=== PATIENT | male | born 1975 | race Caucasian/White ===

== ENCOUNTER 2021-04-01 18:39 | Inpatient (IN) | payer MEDICARE, OTHER ==
[~2021-04-01] VITALS: Ht 170.2 cm; Wt 133.8 kg
--- NOTE | 2021-04-01 18:50 | NUR ---
Abdominal pain with shortness since this morning. Patient a/ox4, c/o shortness of breath, on 2lpm via with spo2 of 83%. Increased O2 to 5LPM VIA NC, spo2 increased to 94%. Dr. Benedict at bedside for eval. Patient denies abdominal pain now. Placed on the retail sales associate.
[2021-04-01] MEDS ORDERED: NITROGLYCERIN 0.4 MG/TAB BOTTLE SL ONE (19:00)
--- NOTE | 2021-04-01 19:00 | NUR ---
IV LINE ESTABLISHED, BLOOD DRAWN AND SENT TO LAB.
[2021-04-01] MEDS ORDERED: NITROGLYCERIN 0.4 MG/TAB BOTTLE ONE (19:07)
--- NOTE | 2021-04-01 19:11 | NUR ---
international trade teacher at bedside for xray.
[2021-04-01] MEDS ORDERED: FUROSEMIDE 40 MG/4 ML VIAL IV ONE (19:30)
[2021-04-01 19:35] LABS: BASOPHILS % (AUTO) 0.6 % (0.0-2.0); EOSINOPHILS % (AUTO) 1.9 % (0.0-6.0); HEMATOCRIT 45 % (39-51); HEMOGLOBIN 14.7 g/dL (13.5-17.5); LYMPHOCYTES # (AUTO) 1.3 K/uL (0.8-4.8); LYMPHOCYTES % (AUTO) 18.3 % (20.0-44.0); MEAN CORPUSCULAR HGB CONC 32 g/dl (31.0-36.0); MEAN CORPUSCULAR VOLUME 91 fL (80-96); MONOCYTES # (AUTO) 0.8 K/uL (0.1-1.30); MONOCYTES % (AUTO) 10.8 % (2.0-12.0); NEUTROPHILS # (AUTO) 4.9 K/uL (1.8-8.9); NEUTROPHILS % (AUTO) 68.4 % (43.0-81.0); PLATELET COUNT (AUTO) 167 K/uL (150-450); RED BLOOD CELL COUNT(AUTO) 4.96 MIL/uL (4.5-6.0); WHITE BLOOD COUNT (AUTO) 7.2 K/uL (4.3-11.0)
[2021-04-01 19:43] LABS: CALCIUM, SERUM 8.3 mg/dL (8.5-10.1); CARBON DIOXIDE 37 mmol/L (21-32); CHLORIDE 103 mmol/L (98-107); CREATININE 0.8 mg/dL (0.6-1.3); GLUCOSE 94 mg/dL (74-106); POTASSIUM 4.3 mmol/L (3.5-5.1); SODIUM SERUM 142 mmol/L (136-145); UREA NITROGEN, BLOOD 11 mg/dL (7-18)
--- NOTE | 2021-04-01 19:50 | NUR ---
nilsa fu collected and sent to the lab.
--- NOTE | 2021-04-01 20:29 | NUR ---
CALLED NURSING SUP FOR BED
--- NOTE | 2021-04-01 20:34 | NUR ---
AT BEDSIDE FOR RE-EVALUATION.
[2021-04-01] MEDS ORDERED: LIDOCAINE 2% JEL UROJET 10 ML MM ONE (20:35)
--- NOTE | 2021-04-01 20:52 | NUR ---
TELE 946-4
--- NOTE | 2021-04-01 21:21 | NUR ---
REPORT GIVEN TO RADHA PALM FOR CASSIA.
--- NOTE | 2021-04-01 21:30 | NUR ---
RN ADMITTING NOTE PATIENT TRANSFERRED FROM ED TO MS/TELE UNIT [facility]IA [facility]. PATIENT IS AMBULATORY WITH ASSISTANCE. MONDRAGON CATHETER IN PLACE FR 14, DRAINING CLEAR YELLOW URINE VIA GRAVITY. PATIENT HAS A L HAND 18 G PATENT AND INTACT. PATIENT IS ABLE TO MAKE NEEDS KNOWN, A/O X 4. PATIENT IS NOTICEABLY SOB WHILE AT REST, AND WORSENS UPON EXERTION. CRACKLES HEARD UPON AUSCULTATION ON BILATERAL LUNG LOBES, PATIENT IS CURRENTLY ON 6 L OF OXYGEN SUPPLEMENTATION VIA NASAL CANULA, SATURATING AT 94%. TELE MONITOR READS ST 112 BPM. PATIENT'S BLE HAS ERYTHEMA AND EDEMA +3. SKIN ISSUES DOCUMENTED. ORIENTED PATIENT TO UNIT, PRIMARY NURSE, MELANIE. SAFETY MEASURES IN PLACE: BED IN LOCKED AND LOWEST POSITION, CALL LIGHT WITHIN REACH, SIDE RAILS UP. WILL MONITOR PATIENT CLOSELY. Addendum: 04/02/21 at 0707 by BRE PAINTER RN MONDRAGON BAG HAD 800 OUTPUT ALREADY
--- NOTE | 2021-04-01 21:32 | NUR ---
patient taken up to assigned room via ACLS protocols for christine.
[2021-04-01] MEDS ORDERED: ALBUTEROL FS 2.5 MG/0.5 ML VIAL.NEB NEB PRN (22:30)
[2021-04-01] MEDS ORDERED: NITROGLYCERIN 0.4 MG/TAB BOTTLE SL PRN (22:30)
[2021-04-01] MEDS ORDERED: IPRATROPIUM BROMIDE 14 GM INHALER (or 12.9 GM) IH PRN (22:30)
[2021-04-02] VITALS: BP 152/81
--- NOTE | 2021-04-02 02:50 | NUR ---
RN NOTE PATIENT SEEN BY CHETAN CRUZ WITH VERBAL ORDER OF LASIX 20 MG IVP ONCE NOW ANS STATES THAT A DUPLEX STUDY ON BLE WILL BE SCHEDULED. NEW ORDERS CARRIED OUT.
[2021-04-02] MEDS ORDERED: FUROSEMIDE 20 MG/2 ML VIAL IV ONE (03:00)
[2021-04-02 04:00] VITALS: BP 123/74
[2021-04-02 06:26] LABS: BASOPHILS % (AUTO) 0.2 % (0.0-2.0); EOSINOPHILS % (AUTO) 1.4 % (0.0-6.0); HEMATOCRIT 43 % (39-51); HEMOGLOBIN 13.9 g/dL (13.5-17.5); LYMPHOCYTES # (AUTO) 1.2 K/uL (0.8-4.8); LYMPHOCYTES % (AUTO) 14.8 % (20.0-44.0); MEAN CORPUSCULAR HGB CONC 32 g/dl (31.0-36.0); MEAN CORPUSCULAR VOLUME 92 fL (80-96); MONOCYTES # (AUTO) 0.8 K/uL (0.1-1.30); MONOCYTES % (AUTO) 10.2 % (2.0-12.0); NEUTROPHILS # (AUTO) 5.7 K/uL (1.8-8.9); NEUTROPHILS % (AUTO) 73.4 % (43.0-81.0); PLATELET COUNT (AUTO) 180 K/uL (150-450); WHITE BLOOD COUNT (AUTO) 7.8 K/uL (4.3-11.0)
--- NOTE | 2021-04-02 07:08 | NUR ---
RN CLOSING NOTE PATIENT SITTING UP ON THE CHAIR AT BEDSIDE. PATIENT HAS A SIMPLE MASK ON 6 L OF O2, TOLERATING WITH 98% O2 SATURATION. PATIENT HAS BEEN EDUCATED MULTIPLE TIMES WITH KEEPING OXYGEN ON, BUT STILL TAKES IT OFF. WILL KEEP REINFORCING IMPORTANCE OF OXYGEN. SAFETY MEASURES MAINTAINED. ALL ORDERS CARRIED OUT. ALL NEEDS MET AND ATTENDED. WILL ENDORSE TO DAY SHIFT NURSE FOR CASSIA.
[2021-04-02 07:22] LABS: BILIRUBIN,TOTAL 0.5 mg/dL (0.2-1.0); CALCIUM, SERUM 8.3 mg/dL (8.5-10.1); CREATININE 0.9 mg/dL (0.6-1.3); MAGNESIUM 2.1 mg/dL (1.8-2.4); PHOSPHORUS 4.3 mg/dL (2.5-4.9); TOTAL PROTEIN, SERUM 7.5 g/dL (6.4-8.2)
--- NOTE | 2021-04-02 07:29 | NUR ---
TELE/RN OPENING NOTES RECEIVED PATIENT SITTING UP ON THE CHAIR AT BEDSIDE. PATIENT HAS A SIMPLE MASK ON 6 L OF O2, TOLERATING WELL. ALERT ORIENTEDX4, ABLE TO MAKE NEEDS KNOWN. SAFETY MEASURES IN PLACED. BED LOCKED ON LOWEST POSITION, SIDE RAILS UPX2, CALL LIGHT AND TABLE WITHIN REACH. WILL CONTINUE TO MONITOR PATIENT.
[2021-04-02 07:30] LABS: THYROID STIMULATING HORMONE 3.048 uIU/mL (0.358-3.74)
[2021-04-02 08:00] VITALS: BP 124/72
[2021-04-02] MEDS ORDERED: DEPAKOTE (08:28)
[2021-04-02] MEDS ORDERED: SEROQUEL (08:28)
[2021-04-02] MEDS ORDERED: ENOXAPARIN SODIUM 30 MG/0.3 ML DISP.SYRIN SQ SCH (09:00)
[2021-04-02] MEDS ORDERED: FUROSEMIDE 40 MG/4 ML VIAL IV SCH (09:00)
[2021-04-02] MEDS: FUROSEMIDE 40 MG/4 ML VIAL IV SCH ×3 (09:31→17:56)
[2021-04-02] MEDS: POTASSIUM CHLORIDE 20 MEQ TAB.PRT.SR PO SCH ×3 (09:31→11:21)
[2021-04-02] MEDS: ENOXAPARIN SODIUM 120 MG/0.8 ML DISP.SYRIN SQ SCH ×2 (09:55→21:46)
--- NOTE | 2021-04-02 12:43 | NUR ---
TELE/RN NOTES PATIENT PULLED OUT IV SAYING IT HURTS HIM. RN ATTEMPTED TO ESTABLISHED ANOTHER IV LINE BUT NOT SUCCESSFUL. NOTIFIED DR. PEARCE VIA PHONE AND MD ORDERED MIDLINE INSERTION. CHARGE NURSE CLYDE NOTIFIED.
--- NOTE | 2021-04-02 14:54 | NUR ---
TELE/RN NOTES NÉSTOR MILAN INSERTED MIDLINE ON RIGHT UPPER ARM.
[2021-04-02 16:00] VITALS: BP 118/76
--- NOTE | 2021-04-02 16:26 | NUR ---
TELE/RN NOTES-REFUSED TELEMONITOR PATIENT KEEPS TAKING OFF TELEMONITOR AND REFUSED FOR RN TO PUT IT BACK ON. NOTIFIED DR. PEARCE AND DR. ISBELL. BOTH MD AWARE. WILL CONTINUE TO MONITOR.
--- NOTE | 2021-04-02 19:40 | NUR ---
RN NOTES RECEIVED PATIENT SITTING ON THE CHAIR, TELE MONITOR ON STANDBY, A/OX2, IRISH/ BELIZEAN SPEAKING, F/C DRAINING CLEAR YELLOW URINE, BILATERAL LOWER EXTREMITIES EDEMA, CALL LIGHT WITHIN REACH, SIDERAILSUPX2, WILL CONTINUE TO MONITOR
--- NOTE | 2021-04-02 19:55 | NUR ---
TELE/RN CLOSING NOTES PATIENT SITTING UP ON THE CHAIR AT BEDSIDE. PATIENT HAS A SIMPLE MASK ON 5 L OF O2, TOLERATING WELL. ALERT ORIENTEDX4, ABLE TO MAKE NEEDS KNOWN. REFUSED TELEMONITOR. MD AWARE. SAFETY MEASURES IN PLACED. BED LOCKED ON LOWEST POSITION, SIDE RAILS UPX2, CALL LIGHT AND TABLE WITHIN REACH. ENDORSE TO THE NEXT SHIFT FOR CASSIA.
[2021-04-02 20:00] VITALS: BP 111/56
[2021-04-03] VITALS: BP 130/63
[2021-04-03 04:00] VITALS: BP 125/71
--- NOTE | 2021-04-03 06:23 | NUR ---
RN NOTES SLEEPING BUT AROUSABLE, NOT IN DISTRESS, DENIES PAIN, MORNING CARE RENDERED STILL SITTING ON THE CHAIR, CALL LIGHT WITHIN REACH, MAGALYUPX2, PT. NEEDS ATTENDED
[2021-04-03 08:00] VITALS: BP 144/69
[2021-04-03] MEDS: ENOXAPARIN SODIUM 120 MG/0.8 ML DISP.SYRIN SQ SCH (08:30)
[2021-04-03 08:39] LABS: BASOPHILS % (AUTO) 0.1 % (0.0-2.0); EOSINOPHILS % (AUTO) 0.7 % (0.0-6.0); HEMATOCRIT 40 % (39-51); LYMPHOCYTES # (AUTO) 1.1 K/uL (0.8-4.8); LYMPHOCYTES % (AUTO) 13.9 % (20.0-44.0); MEAN CORPUSCULAR HGB CONC 32 g/dl (31.0-36.0); MEAN CORPUSCULAR VOLUME 91 fL (80-96); MONOCYTES # (AUTO) 0.9 K/uL (0.1-1.30); MONOCYTES % (AUTO) 11.8 % (2.0-12.0); NEUTROPHILS # (AUTO) 5.6 K/uL (1.8-8.9); NEUTROPHILS % (AUTO) 73.5 % (43.0-81.0); PLATELET COUNT (AUTO) 152 K/uL (150-450); RED BLOOD CELL COUNT(AUTO) 4.44 MIL/uL (4.5-6.0); WHITE BLOOD COUNT (AUTO) 7.6 K/uL (4.3-11.0)
[2021-04-03 13:00] LABS: ALANINE AMINOTRANSFERASE 10 U/L (12-78); ALBUMIN 2.9 g/dL (3.4-5.0); ALKALINE PHOSPHATASE 69 U/L (46-116); ASPARTATE AMINOTRANSFERASE 13 U/L (15-37); BILIRUBIN,TOTAL 0.9 mg/dL (0.2-1.0); CALCIUM, SERUM 8.1 mg/dL (8.5-10.1); CARBON DIOXIDE 36 mmol/L (21-32); CHLORIDE 100 mmol/L (98-107); CREATININE 0.8 mg/dL (0.6-1.3); GLUCOSE 94 mg/dL (74-106); MAGNESIUM 2.3 mg/dL (1.8-2.4); POTASSIUM 3.8 mmol/L (3.5-5.1); SODIUM SERUM 140 mmol/L (136-145); TOTAL PROTEIN, SERUM 7.2 g/dL (6.4-8.2); UREA NITROGEN, BLOOD 17 mg/dL (7-18)
[2021-04-03 16:00] VITALS: BP 135/69
--- NOTE | 2021-04-03 16:16 | NUR ---
UNABLE TO COMPLETE DUPLEX VENOUS LOWER EXT. PATIENT COULD NOT LAY DOWN LONG ENOUGH. NÉSTOR GARRIDO IS AWARE HE WILL TALK TO
[2021-04-03 20:00] VITALS: BP 141/62
--- NOTE | 2021-04-03 20:33 | NUR ---
MS RN Opening Notes Patient was last seen awake sitting on a chair in his room. Patient's on room air with no respiratory distress needed. Patient has a right upper arm midline gauge #18. Patient's in no acute distress at this time. Safety measures in place: Bed locked, bed alarm on, side rails upx3, and call light within reach. Will continue to monitor the patient.
[2021-04-03] MEDS ORDERED: ENOXAPARIN SODIUM 120 MG/0.8 ML DISP.SYRIN SQ SCH (21:00)
[2021-04-03] MEDS ORDERED: ENOXAPARIN SODIUM 60 MG/0.6 ML DISP.SYRIN SQ ONE (21:47)
[2021-04-04 06:20] LABS: BASOPHILS % (AUTO) 0.4 % (0.0-2.0); EOSINOPHILS % (AUTO) 2.2 % (0.0-6.0); HEMATOCRIT 44 % (39-51); HEMOGLOBIN 14.5 g/dL (13.5-17.5); LYMPHOCYTES # (AUTO) 1.1 K/uL (0.8-4.8); LYMPHOCYTES % (AUTO) 15.5 % (20.0-44.0); MEAN CORPUSCULAR HGB CONC 33 g/dl (31.0-36.0); MEAN CORPUSCULAR VOLUME 91 fL (80-96); MONOCYTES # (AUTO) 0.8 K/uL (0.1-1.30); MONOCYTES % (AUTO) 11.1 % (2.0-12.0); NEUTROPHILS # (AUTO) 4.8 K/uL (1.8-8.9); NEUTROPHILS % (AUTO) 70.8 % (43.0-81.0); PLATELET COUNT (AUTO) 145 K/uL (150-450); RED BLOOD CELL COUNT(AUTO) 4.87 MIL/uL (4.5-6.0); WHITE BLOOD COUNT (AUTO) 6.8 K/uL (4.3-11.0)
[2021-04-04 07:16] LABS: CALCIUM, SERUM 8.5 mg/dL (8.5-10.1); CREATININE 0.7 mg/dL (0.6-1.3); MAGNESIUM 2.2 mg/dL (1.8-2.4); POTASSIUM 3.9 mmol/L (3.5-5.1)
[2021-04-04] MEDS: FUROSEMIDE 100 MG/10 ML VIAL IV SCH ×3 (10:57→18:02)
[2021-04-04] MEDS: POTASSIUM CHLORIDE 20 MEQ TAB.PRT.SR PO SCH ×3 (10:57→14:09)
[2021-04-04 11:06] LABS: *SPE A/G RATIO 0.8 (0.7-1.7); *SPE ALBUMIN 3.2 g/dL (2.9-4.4); *SPE ALPHA-1-GLOBULIN 0.3 g/dL (0.0-0.4); *SPE BETA GLOBULIN 1.3 g/dL (0.7-1.3); *SPE GLOBULIN, TOTAL 4.1 g/dL (2.2-3.9); *SPE M-SPIKE Not Observed g/dL (Not Observed); *SPEGAMMA GLOBULIN 1.5 g/dL (0.4-1.8)
[2021-04-04] MEDS: APIXABAN 5 MG TABLET PO SCH ×2 (11:07→21:58)
--- NOTE | 2021-04-04 17:15 | NUR ---
NOT ABLE TO DO A DUPLEX STUDY OF LOWER EXTREMITY SINCE PATIENT CANNOT LIE DOWN IN BED DUE TO DIFFICULTY IN BREATHING.
--- NOTE | 2021-04-04 19:00 | NUR ---
MS RN OPENING NOTE PT AWAKE AND SITTING ON CHAIR AT THIS TIME. A/OX 4, ABLE TO MAKE NEEDS KNOWN. PT REFUSED MEDICAL LABORATORY SCIENTIST. NO SOB NOTED. NO C/O PAIN AT THIS TIME, NO S/O ANY ACUTE DISTRESS NOTED. RESPIRATIONS EVEN AND UNLABORED, STABLE ON RA. IV ACCESS FRANK MIDLINE G#18 SL INTACT, PATENT, FLUSHING WELL. SAFETY PRECAUTIONS IN PLACE AND MAINTAINED AT ALL TIMES. BED IN LOWEST LOCKED POSITION, HOB ELEVATED, SIDE RAILS UP X2, CALL LIGHT AND TABLE WITHIN REACH. WILL CONTINUE TO MONITOR
[2021-04-04 20:00] VITALS: BP 106/69
[2021-04-05] VITALS: BP 130/85
--- NOTE | 2021-04-05 06:00 | NUR ---
MS RN CLOSING NOTE PT IS IN BED WITH EYES CLOSED, EASY TO AROUSE. PT IS STABLE ON RA, NO SOB NOTED. NO S/S OF RESPIRATORY DISTRESS. PT IS BED REST. IV ACCESS IS INTACT, PATENT, AND FLUSHING WELL. MONDRAGON CATHETER CARE PERFORMED. ALL NEEDS HAVE BEEN MET. ALL CARE, NEEDS, MEDICATIONS, AND TREATMENT ADMINISTERED ANTICIPATED PER ORDER. ENCOURAGED PT TO REPOSITION PT Q2H AND PRN. SAFETY, SEIZURE, AND ASPIRATION PRECAUTIONS MAINTAINED AT ALL TIMES. BED IN LOWEST LOCKED POSITION, HOB ELEVATED, SIDE RAILS UPX2. CALL LIGHT AND TABLE WITHIN REACH. WILL ENDORSE TO ONCOMING NURSE FOR CASSIA.
[2021-04-05 06:06] LABS: BASOPHILS % (AUTO) 0.2 % (0.0-2.0); EOSINOPHILS % (AUTO) 2.8 % (0.0-6.0); HEMATOCRIT 46 % (39-51); MEAN CORPUSCULAR HGB CONC 33 g/dl (31.0-36.0); MEAN CORPUSCULAR VOLUME 90 fL (80-96); MONOCYTES # (AUTO) 0.8 K/uL (0.1-1.30); MONOCYTES % (AUTO) 11.4 % (2.0-12.0); NEUTROPHILS % (AUTO) 71.6 % (43.0-81.0); PLATELET COUNT (AUTO) 163 K/uL (150-450); RED BLOOD CELL COUNT(AUTO) 5.08 MIL/uL (4.5-6.0)
[2021-04-05 06:58] LABS: ALBUMIN 3.1 g/dL (3.4-5.0); BILIRUBIN,TOTAL 1.1 mg/dL (0.2-1.0); CALCIUM, SERUM 8.7 mg/dL (8.5-10.1); CREATININE 0.9 mg/dL (0.6-1.3); MAGNESIUM 2.1 mg/dL (1.8-2.4); PHOSPHORUS 3.9 mg/dL (2.5-4.9); POTASSIUM 3.6 mmol/L (3.5-5.1)
--- NOTE | 2021-04-05 07:25 | NUR ---
RN NOTES SEEN PATIENT SITTING IN CHAIR AT BEDSIDE RESTING, EYES CLOSED, ABLE TO BE AWAKENED. BREATHING EVEN AND UNLABORED, TOLERATING ROOM AIR. AMBULATORY. FRANK MIDLINE INTACT AND PATENT. FOR SCHEDULED BLE VENOUS DOPPLER TODAY. SAFETY MEASURES IN PLACE. WILL CONTINUE TO MONITOR.
[2021-04-05] MEDS ORDERED: FURO-145 PO (09:14)
[2021-04-05] MEDS: APIXABAN 5 MG TABLET PO SCH ×2 (10:20→21:41)
--- NOTE | 2021-04-05 17:56 | NUR ---
RN NOTES PATIENT PREVIOUSLY REFUSED B/L VENOUS DOPPLER PROCEDURE. WENDI, SLITTER PROCESSED FILM, SPOKE W/ PATIENT AND PATIENT AGREED TO DO PROCEDURE AT THIS TIME. PENDING DISCHARGE IF RESULT IS NEGATIVE.
--- NOTE | 2021-04-05 19:15 | NUR ---
RN NOTES PATIENT UP IN CHAIR, NOT IN ACUTE DISTRESS. FOR SCHEDULED REPEAT OF B/L DUPLEX VENOUS US, PATIENT AGREED, CURRENTLY AWAITING US TECH. F/C IN PLACE, DRAINING YELLOW-COLORED URINE. SAFETY MEASURES MAINTAINED. ENDORSED TO SWIMMING TEACHER RN FOR CASSIA.
--- NOTE | 2021-04-05 19:30 | NUR ---
MS RN OPENING NOTES RECEIVED PATIENT SITTING IN CHAIR AT BEDSIDE RESTING,AWAKE. BREATHING EVEN AND UNLABORED, TOLERATING ROOM AIR. AMBULATORY. FRANK MIDLINE INTACT AND PATENT. FOR SCHEDULED BLE VENOUS DOPPLER TODAY. SAFETY MEASURES IN PLACE: BED ON LOWEST LOCKED POSITION, KEPT SIDE RAILS RAISED X2, KEPT CALL LIGHT WITHIN EASY REACH. WILL CONTINUE TO MONITOR.
[2021-04-05 20:00] VITALS: BP 119/69
--- NOTE | 2021-04-05 20:05 | NUR ---
RN NOTES VENOUS DOPPLER TONI DONE, NEGATIVE FOR DVT.
--- NOTE | 2021-04-05 20:30 | NUR ---
RN NOTES RECEIVED A CALL FROM PATIENT'S BOARD AND CARE, SPOKE TO MIKE, PER MIKE THEY WON'T BE ABLE TO ACCEPT PATIENT AT THIS TIME. WILL ACCEPT PATIENT IN AM. NANCY VARGAS INFORMED.
[2021-04-05 22:00] VITALS: BP 119/69
[2021-04-06] VITALS: BP 157/96
[2021-04-06 04:00] VITALS: BP 118/69
--- NOTE | 2021-04-06 06:35 | NUR ---
MS RN CLOSING NOTES PATIENT SITTING IN CHAIR AT BEDSIDE RESTING,AWAKE. BREATHING EVEN AND UNLABORED, TOLERATING ROOM AIR. AMBULATORY. FRANK MIDLINE INTACT AND PATENT. FOR SCHEDULED BLE VENOUS DOPPLER TODAY. SAFETY MEASURES IN PLACE: BED ON LOWEST LOCKED POSITION, KEPT SIDE RAILS RAISED X2, KEPT CALL LIGHT WITHIN EASY REACH. FOR DISCHARGE IN AM. ALL NEEDS ATTENDED, WILL ENDORSE TO MORNING SHIFT NURSE FOR CASSIA.
[2021-04-06 08:00] VITALS: BP 129/90
--- NOTE | 2021-04-06 08:18 | NUR ---
MS RN OPENING NOTES PATIENT SITTING AND RESTING IN CHAIR AT BEDSIDE. AOx4. BREATHING EVEN AND UNLABORED, TOLERATING ROOM AIR. NO S/S OF RESPIRATORY DISTRESS. FRANK MIDLINE INTACT AND PATENT. BED ON LOWEST LOCKED POSITION, KEPT SIDE RAILS RAISED X2, CALL LIGHT WITHIN REACH.
[2021-04-06] MEDS: APIXABAN 5 MG TABLET PO SCH (09:13)
--- NOTE | 2021-04-06 11:45 | NUR ---
RN NOTES SPOKE Tamie MERA, SCOW CAPTAIN; PATIENT TO BE PICKED UP AT 1400 BY [facility] FOR TRANSPORTATION BACK TO [facility].
--- NOTE | 2021-04-06 13:02 | NUR ---
RN NOTES Discontinued patient's Guillermo catheter. Removed 10 cc's of water from balloon. Catheter removed without difficulty with tip intact. Patient had no complaints of discomfort or pain. Provided patient with urinal to attempt voiding.
--- NOTE | 2021-04-06 14:26 | NUR ---
YARN PACKER NOTES PATIENT DISCHARGED TODAY TO [facility]. DISCHARGE INSTRUCTIONS AND EDUCATION PROVIDED TO PATIENT. DISCHARGE FORM AND BELONGING LISTS FORM SIGNED BY PATIENT. ALL BELONGINGS ACCOUNTED FOR. IV LINE REMOVED. NO BLEEDING NOTED. PHOTOS OF SKIN ISSUES TAKEN AND ALREADY IN THE PATIENT'S CHART. PATIENT PICKED UP TODAY BY [facility] VIA GURNEY ACCOMPANIED BY 3 EMT'S. CHARGE NURSE AND MD AWARE OF DISCHARGE.
== END 2021-04-06 14:30 | DRG 291 ==
LOC: ER 19:10 → TELE 20:58 → MED 04-03 11:19
PROVIDERS: ADMIT Registered Nurse; ATTEND Internal Medicine
PROC: 05HB33Z Insertion of Infusion Device into Right Basilic Vein, Percutaneous Approach (ICD-10-PCS; principal; 2021-04-02)
DX: I50.33 Acute on chronic diastolic (congestive) heart failure (principal); J96.01 Acute respiratory failure with hypoxia; E43 Unspecified severe protein-calorie malnutrition; Z68.42 Body mass index [BMI] 45.0-49.9, adult; F20.9 Schizophrenia, unspecified; F10.10 Alcohol abuse, uncomplicated; Z20.822 Contact with and (suspected) exposure to COVID-19; G47.33 Obstructive sleep apnea (adult) (pediatric); E66.01 Morbid (severe) obesity due to excess calories; F17.200 Nicotine dependence, unspecified, uncomplicated; Z79.899 Other long term (current) drug therapy; Y90.9 Presence of alcohol in blood, level not specified
CPT/HCPCS: 36415; 71045-TC; 80048-TC; 80053-TC; 80061-TC; 83735-TC; 83880; 84100-TC; 84155; 84165; 84443-TC; 84484-TC; 85025-TC; 85378-TC; 87081-TC; 93307-TC; 93970-TC; C9803; G0378; J1650; J1940; J3490